=== PATIENT | male | born 1975 | race Caucasian/White ===

== ENCOUNTER 2017-08-15 10:25 | Emergency (ER) | payer OTHER ==
[~2017-08-15] VITALS: Ht 177.8 cm; Wt 77.1 kg
== END 2017-08-15 11:12 | disposition home or self-care (01) ==
LOC: ED 10:25
DX: S40.862A Insect bite (nonvenomous) of left upper arm, initial encounter (principal); F17.200 Nicotine dependence, unspecified, uncomplicated; W57.XXXA Bitten or stung by nonvenomous insect and other nonvenomous arthropods, initial encounter; Y93.89 Activity, other specified; Y92.89 Other specified places as the place of occurrence of the external cause; Y99.8 Other external cause status